=== PATIENT | female | born 1995 | race Caucasian/White ===

== ENCOUNTER 2019-09-19 21:01 | Inpatient (IN) | payer OTHER ==
[2019-09-19] MEDS ORDERED: LACTATED RINGERS 1,000 ML IV ONE (21:25)
[2019-09-19] MEDS ORDERED: ACETAMINOPHEN 325 MG TAB PO ONE ×2 (21:25→23:30)
[2019-09-19 21:54] LABS: Basophils % (Auto) 0.3 % (0.0-1.8); Eosinophils % (Auto) 0.1 % (0.0-4.3); Hematocrit 31.8 % (30.3-42.9); Hemoglobin 10.5 gm/dl (10.1-14.3); Lymphocytes # (Auto) 1.2 K/mm3 (1.2-5.4); Lymphocytes % (Auto) 9.7 % (13.4-35.0); Mean Corpuscular HGB Conc 33 % (30-34); Mean Corpuscular Volume 77 fl (79-97); Monocytes # (Auto) 0.9 K/mm3 (0.0-0.8); Monocytes % (Auto) 7.5 % (0.0-7.3); Platelet Count 306 K/mm3 (140-440); Red Blood Count 4.14 M/mm3 (3.65-5.03); Red Cell Distribution Width 15.6 % (13.2-15.2)
[2019-09-19 22:18] LABS: Alanine Aminotransferase 8 units/L (7-56); Albumin 3.4 g/dL (3.9-5); BUN/Creatinine Ratio 16; Blood Urea Nitrogen 8 mg/dL (7-17); Hemolysis Index 1
[2019-09-19] MEDS ORDERED: LIDOCAINE (2%) 20 MG/1 ML VIAL 20 ML MDV INFILTRATI ONE (22:48)
[2019-09-19] MEDS ORDERED: ePHEDrine SULFATE 50 MG/1 ML INJ IV PRN (22:48)
[2019-09-19] MEDS ORDERED: ONDANSETRON 4 MG/2 ML INJ IV PRN (22:48)
[2019-09-19] MEDS ORDERED: TERBUTALINE 1 MG/1 ML INJ SUB-Q PRN (22:48)
--- NOTE | 2019-09-19 22:51 | History and Physical Report ---
History of Present Illness Date of examination: 09/19/19 Date of admission: 09/19/2019 Chief complaint: Contractions History of present illness: 23 year old presents to L&D with complaint of contractions since 04:00 today. Patient denies leaking of fluid or vaginal bleeding. Pt. received care at [facility] and records are available. LMP 12/08/2018. EDC 09/14/2019. uncomplicated. labs are as follows: O+, antibody screen negative, rubella immune, hepatitis B surface antigen negative, HIV negative, RPR false positive (Trep. pallidum negative times 2), Pap smear negative, gonorrhea negative, chlamydia negative, quad screen negative, 1 hour sugar test negative, GBS negative. 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 denies: smoking, alcohol abuse, IV drug use - Obstetrical History Expected Date of Delivery: 09/14/19 Actual Gestation: 40 Week(s) 5 Day(s) : 1 Para: 0 Hx # Term Pregnancies: 0 Number of Pregnancies: 0 Spontaneous Abortions: 0 Induced : 0 Number of Living Children: 0 Medications and Allergies Allergies Allergy/AdvReac Type Severity Reaction Status Date / Time Pork/Porcine Containing Allergy Vomiting Verified 09/19/19 22:04 Products Home Medications Medication Instructions Recorded Confirmed Last Taken Type Vit-Fe Fumar-FA [ 1 tab PO QDAY 09/19/19 09/19/19 09/19/19 History Vitamin] Active Meds: Active Medications Ephedrine Sulfate (Ephedrine Sulfate) 10 mg IV Q2M PRN PRN Reason: Hypotension Oxytocin/Sodium Chloride (Pitocin/Ns 20 Unit/1000ml Drip) 20 units in 1,000 mls @ 125 mls/hr IV DIRECT DREW Lactated Ringer's (Lactated Ringers) 1,000 mls @ 125 mls/hr IV DIRECT DREW Lidocaine (Xylocaine 2%) 20 ml INFILTRATI ONCE ONE Stop: 09/19/19 22:49 Ondansetron HCl (Zofran) 4 mg IV Q8H PRN PRN Reason: Nausea And Vomiting Terbutaline Sulfate (Brethine) 0.25 mg SUB-Q ONCE PRN PRN Reason: Hyperstimulation/Hypertonicity Review of Systems All systems: negative (contractions) - Vital Signs Vital signs: Vital Signs Temp Pulse Resp BP 100.2 F H 129 H 18 112/73 09/19/19 21:18 09/19/19 21:18 09/19/19 21:18 09/19/19 21:18 Temp Pulse Resp BP Pulse Ox 100.2 F H 110 H 18 116/71 100 09/19/19 21:18 09/19/19 22:46 09/19/19 21:18 09/19/19 22:29 09/19/19 22:46 - Physical Exam Cardiovascular: Regular rate (mild maternal tachycardia), No murmurs Lungs: Positive: Clear to auscultation Abdomen: Positive: normal appearance, soft. Negative: distention, tenderness, guarding, rigidity Genitourinary (Female): Positive: normal external genitalia, normal perenium. Negative: perineal/vulvar lesions Vagina: Positive: normal moisture Cervix: Negative: other Uterus: Positive: normal size. Negative: tender, other Anus/Rectum: Positive: normal perianal skin Extremities: Positive: normal. Negative: tenderness, edema - Obstetrical FHR: category 2 Uterine Contraction Monitor Mode: External Cervical Dilatation: 3 Cervical Effacement Percentage: 80 station: -1 Uterine Contraction Pattern: Irregular Uterine Contraction Intensity: Mild Results Result Diagrams: 09/19/19 21:39 09/19/19 21:39 Abnormal lab results 09/19/19 09/19/19 Range/Units 21:39 21:39 WBC 12.2 H (4.5-11.0) K/mm3 MCV 77 L (79-97) fl MCH 26 L (28-32) pg RDW 15.6 H (13.2-15.2) % Lymph % (Auto) 9.7 L (13.4-35.0) % [place] % (Auto) 7.5 H (0.0-7.3) % [place] # 0.9 H (0.0-0.8) K/mm3 Seg Neutrophils % 82.4 H (40.0-70.0) % Seg Neutrophils # 10.0 H (1.8-7.7) K/mm3 Sodium 133 L (137-145) mmol/L Carbon Dioxide 18 L (22-30) mmol/L Creatinine 0.5 L (0.7-1.2) mg/dL Alkaline Phosphatase 268 H (35-129) units/L Albumin 3.4 L (3.9-5) g/dL All other labs normal. Assessment and Plan A: at 40 weeks, 5 days gestation. Mild temperature elevation with mild maternal and tachycardia. GBS negative. Early labor. P: Admit. IV hydration. IV antibiotics. Continuous EFM. COVID labs. Augment labor. Consulted with Dr. Chin re: this patient, FHR tracing, maternal and tachycardia, fever, patient complaints, interventions taken. No new orders received from .
[2019-09-19] MEDS ORDERED: OXYTOCIN 20 UNIT/1000ML DRIP 20 UNITS/1,000 ML BAG IV SCH (23:00)
[2019-09-19] MEDS ORDERED: GENTAMICIN 100 MG in SODIUM CHLORIDE 0.9% 100 ML IV SCH (23:15)
[2019-09-19 23:41] LABS: Bilirubin,Urine NEG (Negative); Blood,Urine MOD (Negative); Color,Urine Straw (Yellow); Mucus,Urine FEW /HPF; Protein,Urine <15 mg/dL mg/dL (Negative); Urobilinogen,Urine < 2.0 mg/dL (<2.0)
[2019-09-19 23:48] LABS: Amphetamine Screen,Urine PRESUMPTIVE NEGATIVE; Benzodiazepines Screen,Urine PRESUMPTIVE NEGATIVE; Cannabinoid Screen,Urine PRESUMPTIVE NEGATIVE; Cocaine Screen,Urine PRESUMPTIVE NEGATIVE; Methadone Screen,Urine PRESUMPTIVE NEGATIVE; Opiate Screen,Urine PRESUMPTIVE NEGATIVE
[2019-09-19] MEDS ORDERED: AMPICILLIN/NS 2 GM/100 ML 2 GM/100 ML BAG IV ONE (23:58)
[2019-09-19] MEDS: LACTATED RINGERS 1,000 ML IV SCH (23:59)
[2019-09-20 00:13] LABS: Hepatitis C Virus Antibody Non-Reactive (NonReactive)
--- NOTE | 2019-09-20 01:07 | Event Note ---
Date: 09/20/19 SVE cervix unchanged. Discussed with pt. augmentation of labor with Pitocin. Pitocin orders put in.
[2019-09-20] MEDS ORDERED: OXYTOCIN DRIP 30,000 MILLIUNITS/500 ML BAG IV ONE (01:31)
[2019-09-20] MEDS ORDERED: GENTAMICIN/NS 100 MG/100 ML 100 MG/100 ML BAG IV SCH (02:00)
[2019-09-20] MEDS ORDERED: DEXMEDETOMIDINE 200 MCG/2 ML VIAL IV ONE (02:50)
[2019-09-20] MEDS ORDERED: fentaNYL-BUPIV 2 MCG/ML-0.125% 200 MCG/100 ML BAG EPIDURAL ONE (02:50)
[2019-09-20 03:06] LABS: C-Reactive Protein 5.5 mg/dL (0.00-1.30)
[2019-09-20] MEDS: LACTATED RINGERS 1,000 ML IV SCH ×2 (03:28→03:39)
[2019-09-20] MEDS ORDERED: ePHEDrine SULFATE 50 MG/1 ML INJ IV PRN (03:33)
[2019-09-20] MEDS ORDERED: NALOXONE 2 MG/2 ML INJ IV PRN (03:33)
--- NOTE | 2019-09-20 03:33 | Anesthesia Consultation ---
Anesthesia Consult and Med Hx Date of service: 09/20/19 - Airway Anesthetic Teeth Evaluation: Good ROM Head & Neck: Adequate Mental/Hyoid Distance: Adequate Mallampati Class: Class II Intubation Access Assessment: Probably Good - Pulmonary Exam CTA: Yes - Cardiac Exam Cardiac Exam: RRR - Pre-Operative Health Status ASA Pre-Surgery Classification: ASA2 Proposed Anesthetic Plan: Epidural - Pulmonary Hx Asthma: No COPD: No Hx Pneumonia: No - Cardiovascular System Hx Hypertension: No - Central Nervous System Hx Seizures: No Hx Psychiatric Problems: No - Endocrine Hx Renal Disease: No Hx End Stage Renal Disease: No Hx Hypothyroidism: No Hx Hyperthyroidism: No - Hematic Hx Anemia: No Hx Sickle Cell Disease: No - Other Systems Hx Alcohol Use: No
[2019-09-20] MEDS ORDERED: fentaNYL-BUPIV 2 MCG/ML-0.125% 200 MCG/100 ML BAG EPIDURAL SCH (04:00)
--- NOTE | 2019-09-20 04:50 | Event Note ---
Date: 09/20/[address] Chin. FHR baseline 160 with moderate variability and variable and late FHR decelerations. Patient has been positioned in left lateral position and she is receiving oxygen by face mask at 10 LPM. Contractions are every 4-6 minutes and palpate mild to moderate. Uterus palpates soft between contractions. Patient is afebrile. Patient is receiving Amp and Gent. No new orders received from MD; she states to continue current management.
[2019-09-20] MEDS ORDERED: AMPICILLIN/NS 2 GM/100 ML 2 GM/100 ML BAG IV ONE (05:31)
--- NOTE | 2019-09-20 06:41 | Event Note ---
Date: 09/20/19 SVE no cervical change. Discussed with MD. Plan for section due to no further cervical change and FHR tracing. Discussed this with pt. and S.O.
[2019-09-20] MEDS ORDERED: METOCLOPRAMIDE 10 MG/2 ML INJ IV ONE (06:42)
[2019-09-20] MEDS ORDERED: FAMOTIDINE 20 MG/2 ML INJ IV ONE (06:42)
[2019-09-20] MEDS ORDERED: BICITRA ORAL LIQD 30ML PO ONE (06:42)
[2019-09-20] MEDS ORDERED: OXYTOCIN 20 UNIT/1000ML DRIP 20 UNITS/1,000 ML BAG IV SCH ×2 (07:00→10:00)
[2019-09-20] MEDS ORDERED: ceFAZolin/Water 2 GM/20 ML 2 GM/20 ML SYRINGE IV ONE (07:35)
--- NOTE | 2019-09-20 08:09 | Event Note ---
Date: 09/20/19 Plan has been for delivery since 06:30 due to FHR tracing and lack of progress in labor. Care of patient was turned over to MD when this r ecommendation for section was made and patient was informed. Contacted MD and requested delivery be expedited due to late decelerations occurring repetitively.
[2019-09-20] MEDS ORDERED: BUPIVACAINE/PF (0.5%) 5 MG/1 ML 30 ML VIAL INFILTRATI ONE (08:35)
[2019-09-20] MEDS ORDERED: KETOROLAC 30 MG/1 ML INJ ONE (08:35)
[2019-09-20] MEDS ORDERED: SODIUM BICARB 8.4% 50 MEQ/50 ML VIAL IV ONE (08:35)
[2019-09-20] MEDS ORDERED: LIDOCAINE 2%/EPINEPHRINE 1:200,000 VIAL (20 ML) INFILTRATI ONE (08:35)
[2019-09-20] MEDS ORDERED: OXYTOCIN 10 UNIT/1 ML INJ ONE (08:35)
[2019-09-20] MEDS ORDERED: METHYLERGONOVINE MALEATE 0.2 MG/ML VIAL IM ONE (08:42)
[2019-09-20] MEDS ORDERED: PHENYLEPHRINE/NS 1,000 MCG/10 ML SYRINGE (OR USE) IV ONE (09:00)
[2019-09-20] MEDS ORDERED: ceFAZolin/STERILE WATER 2 GM/20 ML SYRINGE IV ONE (09:01)
[2019-09-20] MEDS ORDERED: WATER FOR IRRIG STERILE 1,500 ML BOTTLE IR ONE (09:04)
[2019-09-20] MEDS ORDERED: SODIUM CHLORIDE 0.9% IRR 1,500 ML BOTTLE IR ONE (09:04)
[2019-09-20] MEDS ORDERED: LACTATED RINGERS 1,000 ML ONE (09:10)
[2019-09-20] MEDS ORDERED: MORPHINE 4 MG/1 ML INJ IV PRN (09:52)
[2019-09-20] MEDS ORDERED: NALOXONE 0.4 MG/1 ML INJ IV PRN (09:52)
[2019-09-20] MEDS ORDERED: ONDANSETRON 4 MG/2 ML INJ IV PRN (09:52)
[2019-09-20] MEDS ORDERED: KETOROLAC 30 MG/1 ML INJ IV PRN (09:52)
[2019-09-20] MEDS ORDERED: WITCH HAZEL/ GLYCERIN PAD TP PRN (09:52)
[2019-09-20] MEDS ORDERED: LANOLIN/ZINC/DIMETHICONE (LANSINOH) 7 GM TP PRN (09:52)
[2019-09-20] MEDS ORDERED: ACETAMINOPHEN 650 MG RECT SUPP PR PRN (09:52)
--- NOTE | 2019-09-20 10:00 | Event Note ---
Date: 09/20/19 I was notified of patient's situation for the first time at 7:55 this morning.
--- NOTE | 2019-09-20 10:04 | Operative Report ---
Operative Report Operative Report: Date of surgery: September 20, 2019 Preoperative diagnoses: Nonreassuring heart tracing Postoperative diagnoses: The same. Thick dense meconium, loops of umbilical cord around the baby's thighs. Operation: Lower segment transverse delivery Surgeon:Darrius Thomas MD Spanish Linguist: Mulu Cannon CRNA Anesthesia: Spinal block Estimated blood loss: 500 mL Complications: None Findings: There was a live baby girl in cephalic presentation within an amniotic sac with scant amniotic fluid reach with olive green thick meconium. The ovaries, fallopian tubes and the uterus were grossly normal. The bowels and the greater omentum palpable through the Pfannenstiel incision were grossly normal. Procedure in detail: The patient was taken to the operating room and given a spinal block. Patient was placed in the straight supine position and a Rodriguez catheter was inserted. The patient was prepped in the abdomen. The drapes were placed. A timeout was done. With the go ahead from the plastics process hand, a Pfannenstiel incision was made. This incision was carried across the subcutaneous layer to the fascia which was also divided transversely. The recti abdominis muscle flaps were stripped from the fascia using a combination of blunt and sharp dissections. The muscles were in the midline to gain access to the anterior parietal peritoneum which was divided after excluding any underlying viscera. The access to the peritoneal cavity was then widened by manual stretching. The bladder blade was applied. The utero vesicle peritoneal flap was divided transversely allowing the bladder to be displaced caudally. The uterine incision was placed in the lower segment transversely. The uterine incision was carried to the decidual layer. The uterine incision was extended on both sides using the bandage scissors. The amniotic sac was ruptured with clear fluid. The head was lifted out of the false maternal pelvis and delivered through the incision using fundal pressure. The airways were bulb suctioned beginning with the mouth. Continuing fundal pressure combined with traction on the mandibular processes of the jaw delivered the rest of the baby. The umbilical cord was double clamped and divided. The baby was carefully transferred to the pediatric team. The placenta was manually removed from the uterine cavity. The uterine cavity was explored and was empty of any placental remnants. The uterine incision was repaired in 2 layers with #1 Vicryl. The surgical line on the uterus was hemostatic. Blood and clots were cleared from the peritoneal cavity. The anterior parietal peritoneum was repaired with #1 Vicryl. The fascia was repaired with #1 Vicryl. The subcutaneous layer was made hemostatic using the Bovie before the skin was closed subcuticularly with 4-0 Vicryl. There were no complications. The estimated blood loss was 500 mL. All sponges and instrument counts were correct. Patient was safely transferred to the recovery room.
--- NOTE | 2019-09-20 10:45 | Post Anesthesia Evaluation ---
- Post Anesthesia Evaluation Patient Participated: Yes Airway Patent: Yes Stable Respiratory Function: Yes Nausea/Vomiting: No Temp > 96.8F: Yes Pain Manageable: Yes Adequeate Hydration: Yes Anesthesia Complications: No Block Receding Appropriately: Yes
[2019-09-20] MEDS ORDERED: ACETAMINOPHEN 500 MG TAB PO SCH (11:00)
[2019-09-20] MEDS: ACETAMINOPHEN 325 MG TAB PO SCH ×2 (16:09→23:32)
[2019-09-20] MEDS: KETOROLAC 30 MG/1 ML INJ IV SCH ×2 (16:10→23:31)
[2019-09-20] MEDS: D5W/LACTATED RINGERS 1,000 ML IV SCH ×2 (16:17→23:31)
[2019-09-20] MEDS: ceFAZolin/NS 1 GM/50 ML 1 GM/50 ML BAG IV SCH ×2 (16:17→23:36)
[2019-09-20 21:15] LABS: Hematocrit 27.4 % (30.3-42.9); Hemoglobin 8.7 gm/dl (10.1-14.3)
[2019-09-20] MEDS ORDERED: AMPICILLIN/NS 2 GM/100 ML 2 GM/100 ML BAG IV SCH (23:01)
[2019-09-21] MEDS: HYDROcodone/ACETAMINOPHEN 5-325 MG TAB PO PRN ×4 (04:02→21:32)
[2019-09-21] MEDS: ACETAMINOPHEN 325 MG TAB PO SCH (05:27)
[2019-09-21] MEDS: KETOROLAC 30 MG/1 ML INJ IV SCH (05:28)
[2019-09-21] MEDS: FERROUS SULFATE 325 MG TAB PO SCH (11:11)
[2019-09-21] MEDS: PRENATAL VIT27-FE FUMARATE-FOLIC ACID VIT TAB PO SCH (11:11)
[2019-09-21] MEDS: IBUPROFEN 800 MG TAB PO PRN ×2 (12:12→18:04)
--- NOTE | 2019-09-21 13:12 | Progress Note ---
Assessment and Plan A: /postop day 1 S/P primary LTCS. Anemia. P: Advance diet as tolerated. Supplement with iron. Encouraged ambulation. Subjective - Subjective Date of service: 09/21/19 Principal diagnosis: /postop day 1 S/P primary LTCS Interval history: /postop day 1 S/P primary LTCS. Doing well. Patient is voiding without difficulty, ambulating well, tolerating liquid diet, passing gas. No complaints. Patient reports: appetite normal, voiding normally, pain well controlled, flatus, ambulating normally, no dizzy ambulation, no nauseated [place]: doing well Objective - Vital Signs Latest vital signs: Vital Signs Temp Pulse Resp BP BP BP Pulse Ox 09/21/19 08:37 98.1 F 94 H 16 104/63 97 09/21/19 03:45 97.9 F 100 H 18 107/67 96 09/21/19 00:05 98.2 F 90 18 94/59 96 09/20/19 21:30 97.9 F 90 18 103/66 97 09/20/19 16:22 97.9 F 104 H 18 101/62 97 Intake and Output 09/20/19 09/21/19 09/21/19 23:59 07:59 15:59 Intake Total 1554.167 480 120 Output Total 1950 400 300 Balance -395.833 80 -180 Intake: IV 954.167 ANCEF/NS 1 GM/50 ML 1 gm 50 In 50 ml @ 100 mls/hr IV Q8H DREW Rx#:[id number] D5lr 1,000 ml @ 125 mls/ 904.167 hr IV DIRECT DREW Rx#: [id number] Oral 120 480 120 Intake, Free Water 480 Output: Urine 1950 400 300 Indwelling 750 Indwelling Catheter 1200 Void 400 300 Other: Total, Intake Amount 120 120 120 Total, Output Amount 750 400 300 # Voids Void 1 - Exam Cardiovascular: Present: Regular rate, Normal S1, Normal S2, No murmurs Lungs: Present: Clear to auscultation Abdomen: Present: normal appearance, soft, normal bowel sounds. Absent: distention, tenderness, guarding, rigidity Uterus: Present: normal, firm, fundal height below umbilicus. Absent: bogginess, tenderness Extremities: Present: normal. Absent: tenderness, edema Incision: Present: normal, dry, intact, dressed - Labs Labs: Abnormal lab results 09/20/19 Range/Units 21:05 Hgb 8.7 L (10.1-14.3) gm/dl Hct 27.4 L (30.3-42.9) %
[2019-09-22] MEDS: IBUPROFEN 800 MG TAB PO PRN (02:14)
[2019-09-22] MEDS: ACETAMINOPHEN 325 MG TAB PO SCH (02:14)
[2019-09-22] MEDS: FERROUS SULFATE 325 MG TAB PO SCH (10:07)
[2019-09-22] MEDS: PRENATAL VIT27-FE FUMARATE-FOLIC ACID VIT TAB PO SCH (10:09)
[2019-09-22] MEDS: HYDROcodone/ACETAMINOPHEN 5-325 MG TAB PO PRN (10:09)
--- NOTE | 2019-09-22 10:25 | Progress Note ---
Assessment and Plan - Patient Problems (1) S/P primary low transverse Current Visit: Yes Status: Acute Plan to address problem: POD 2 - stable Continue routine postop orders Discharge to home today Follow-up at 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 Notes Patient reports: appetite normal, voiding normally, pain well controlled, flatus, ambulating normally, no dizzy ambulation, no bowel movement [place]: doing well Objective - Vital Signs Latest vital signs: Vital Signs Temp Pulse Resp BP Pulse Ox 09/22/19 10:09 20 09/22/19 08:37 97.9 F 91 H 18 109/64 97 09/22/19 02:14 97.8 F 88 16 99/63 97 09/21/19 16:20 98.1 F 94 H 18 98/64 94 Intake and Output 09/21/19 09/22/19 09/22/19 23:59 07:59 15:59 Intake Total 720 480 Balance 720 480 Intake: Oral 480 Intake, Free Water 240 480 Other: Total, Intake Amount 480 # Voids Void 1 1 - Exam Cardiovascular: Present: Regular rate Lungs: Present: Clear to auscultation Abdomen: Present: normal appearance, soft Vulva: both: normal Uterus: Present: normal, firm, fundal height below umbilicus Extremities: Present: normal Incision: Present: normal, dry, intact, other (steri strips in place) Comments: scant lochia
--- NOTE | 2019-09-22 10:30 | Discharge Summary ---
Providers - Providers Date of Admission: 09/19/19 22:48 Date of discharge: 09/22/19 Attending physician: NEERAJ HERNANDEZ MD Primary care physician: NEERAJ HERNANDEZ MD Hospitalization Reason for admission: active labor, IUP at term Delivery: Procedure: primary low transverse Episiotomy: none Laceration: none Incision: normal, dry, intact, other (steri strips in place) Other procedures: none complications: none Discharge diagnosis: IUP at term delivered baby: female Hospital course: Uncomplicated Condition at discharge: Stable Disposition: DC-01 TO HOME OR SELFCARE - Discharge Diagnoses (1) S/P primary low transverse Status: Acute (2) Anemia due to blood loss, acute Status: Acute Comment: Continue ferrous sulfate 325mg by mouth twice daily Eat iron-rich foods Plan - Discharge Medications Prescriptions: Ferrous Sulfate [Feosol 325 MG tab] 325 mg PO BID #60 tablet Ibuprofen [Motrin 800 MG tab] 800 mg PO Q6H PRN #30 tablet PRN Reason: Pain, Mild (1-3) HYDROcodone/APAP 5-325 [[place] 5/325] 1 - 2 each PO Q4HR PRN #30 tablet PRN Reason: Pain - Provider Discharge Summary Activity: routine, no sex for 6 weeks, no heavy lifting 4 weeks, no strenuous exercise Diet: routine Instructions: routine Additional instructions: [] Smoking cessation referral if applicable(refer to patient education folder for contact #) [] Refer to [facility] Booklet Call your doctor immediately for: * Fever > 100.5 * Heavy vaginal bleeding ( >1 pad per hour) * Severe persistent headache * Shortness of breath * Reddened, hot, painful area to leg or breast * Drainage or odor from incision. * Keep incision clean and dry at all times and follow doctor's instructions regarding bathing/showering - Follow up plan Follow up: NEERAJ HERNANDEZ MD [Primary Care Provider] - 7 Days (Follow-up at [facility] as needed or in 1 week for incision check)
[2019-09-22] MEDS ORDERED: FERROUS SULFATE 325 MG TAB PO SCH (11:00)
[2019-09-22 14:05] VITALS: BP 96/60
== END 2019-09-22 14:14 | disposition home or self-care (01) | DRG 787 ==
LOC: TRG 21:01 → APU 21:03 → LD 22:48 → TRG 22:48 → OB 09-20 12:05
PROVIDERS: ADMIT Obstetrics & Gynecology; ATTEND Obstetrics & Gynecology
PROC: 10D00Z1 Extraction of Products of Conception, Low, Open Approach (ICD-10-PCS; principal; 2019-09-20)
DX: O76 Abnormality in fetal heart rate and rhythm complicating labor and delivery (principal); D62 Acute posthemorrhagic anemia; O75.0 Maternal distress during labor and delivery; Z3A.40 40 weeks gestation of pregnancy; Z37.0 Single live birth; O77.0 Labor and delivery complicated by meconium in amniotic fluid; O90.81 Anemia of the puerperium
CPT/HCPCS: 36415; 80053; 80307; 81001; 82140; 83615; 84145; 85014; 85018; 85025; 86140; 86592; 86706; 86803; 86850; 86900; 86901; 87040; 87086; 87400; 87635; 87806; 88307; G0378; J0290; J0690; J1580; J1885; J2210; J2370; J2590; J2765; J3490; J7120; J7121